=== PATIENT | male | born 1950 | race Caucasian/White ===

== ENCOUNTER 2021-02-13 13:37 | Inpatient (IN) | payer MEDICARE, SELFPAY ==
[2021-02-13 13:45] VITALS: PULSE 96; RESP 20; O2SAT 95
--- NOTE | 2021-02-13 13:47 | WPDPN ---
Progress Note: A&P Assessment and Plan (1) Weakness: Code(s): R53.1 - Weakness Status: Acute Assessment and Plan: ? Exhibit tolerance during physical activity as evidenced by a normal fluctuation of vital signs during physical activity. ? Patient will be ability to perform required activities of daily living. ? Provide appropriate nutrition for healing and strength. ? Use appropriate to prevent falls. ? Continue physical therapy/occupational therapy. (2) Fracture: Code(s): T14.8XXA - Other injury of unspecified body region, initial encounter Status: Acute Assessment and Plan: Imaging from outside hospital indicate left scapula, first and sixth rib acetabular and pubic ramus fx and L1 compression fracture Possibly mild loosening of the L3 pedicular screws Imaging indicate left pulmonary contusion Patient's orthopedic surgeons Dr. Friedman and Dr. Scott's Sling to left upper extremity with nonweightbearing Left lower extremity nonweightbearing TLSO on while up okay to remove while lying in bed is sitting in chair soft partial cast to left foot due to left calcaneal fx Follow-up with Dr. Thibodeaux 2 weeks from lumbar spine fracture [phone] Follow-up with Dr. Shin , PCP in 1 week [phone] Follow-up with Dr. Ram [phone] Continue pain control with physical therapy/Occupational Therapy (3) On supplemental oxygen by nasal cannula: Code(s): Z78.9 - Other specified health status Status: Acute Assessment and Plan: Unable to titrate oxygen off the patient is a [facility] in [place] patient currently on 2 L nasal cannula satting in the lower 90s at the outside hospital Possibly secondary to multiple rib fractures and left pulmonary contusion Will attempt to titrate if not patient will need home to evaluate upon discharge (4) Hypercholesterolemia: Code(s): E78.00 - Pure hypercholesterolemia, unspecified Status: Acute Assessment and Plan: Continue statins Time Spent With Patient Time: 60 minutes Review of Systems Review of Systems: Narrative: A 14 organ system Review of Systems was performed and pertinent positives included in the HPI, otherwise remaining ROS is negative. Exam Narrative: Exam Narrative: GENERAL: This is a well-nourished, well-developed patient, in no apparent distress. HEAD: normocephalic, atraumatic. EYES: PERRL. Sclera clear/white. Vision is grossly intact. EARS: External ears normal, auditory canals clear and without drainage, TMs normal without perforation. Hearing grossly intact. NOSE: External nose normal with no obvious nasal discharge, nares without redness, no rhinorrhea. THROAT: Mucous membranes moist, posterior pharynx clear. NECK: Neck supple, non-tender without lymphadenopathy, masses or thyromegaly. CARDIOVASCULAR: Regular rate and rhythm without murmurs, gallops, or rubs. RESPIRATORY: Clear to auscultation. Breath sounds equal bilaterally. No wheezes, rales, or rhonchi. GASTROINTESTINAL: Abdomen soft, non-tender, nondistended. Bowel sounds are active. No hepato-splenomegaly, or palpable masses. No guarding. SKIN: warm, with no suspicious lesions or rash, good texture and turgor. Approximately 2 open areas to his left upper extremity NEURO: awake, alert, and oriented to person, place and time. There were no obvious focal neurologic abnormalities. Steady gait EXTREMITIES: Limited range of motion to the left lower extremity soft partial cast in place with weightbearing restriction to upper and lower extremity. No edema. No calf tenderness. Negative Homans sign bilaterally. BACK: Nontender without deformity or crepitance. No flank tenderness. Quality VTE Prophylaxis VTE prophylaxis: pharmacologic ordered (Lovenox) Subjective Date/time seen: 02/13/21 13:47 this is a 70-year-old male that is coming [facility] for swing bed placement. Patient has a history of high cholesterol. Patient fell from a ladder and was
[2021-02-13 14:08] VITALS: BMI 24.5
[2021-02-13 14:41] VITALS: BP 150/90; PULSE 96; RESP 20; TEMP 36.8; O2SAT 95
--- NOTE | 2021-02-13 15:03 | PM.IMHP ---
H&P: HPI History of Present Illness Date/Time: 02/13/21 15:03 Chief Complaint: Multiple fractures, rehabilitation Narrative: 70-year-old gentleman admitted to this hospital as a swing bed for rehabilitation after a 7 ft fall onto the lift arms of her tractor. He has fractures of the left hip acetabulum, left inferior pubic ramus, compression fracture of L1, fracture of ribs 3 through 6 with pulmonary contusion, fracture of the left calcaneus, and a comminuted left scapular fracture. These injuries were managed non operatively and he has a TLSO that he is to wear when he is out of bed or chair. He has a small oxygen requirement (2 l/m) with activity, reading 95% on room air at rest. Review of Systems Review of Systems: All systems reviewed & are unremarkable except as noted in HPI and below Constitutional: Constitutional: Denies anorexia, Denies difficulty sleeping and Denies fever(s) Eyes: Eyes: Denies change in vision and Denies loss of vision ENT: Denies nasal congestion, Denies nasal discharge and Denies sore throat Cardiovascular: Cardiovascular: Denies acrocyanosis, Denies chest pain, Denies rapid heart rate, Reports dyspnea on exertion and Denies orthopnea Respiratory: Respiratory: Denies cough, Denies hemoptysis and Reports pain on inspiration Gastrointestinal: Gastrointestinal: Denies abdominal pain, Denies diarrhea, Denies nausea and Denies vomiting Genitourinary: Genitourinary: Denies hematuria, Denies dysuria and Denies urinary frequency Musculoskeletal: Musculoskeletal: Reports as per HPI, Denies arthralgias and Denies joint swelling Integumentary/Breasts: Skin/Breast: Denies pruritus, Denies lesions, Denies erythema and Denies rash Neurologic: Denies memory loss, Denies numbness, Denies convulsions and Denies seizure-like activity Hematologic/Lymphatic: Hematologic/Lymphatic: Denies easy bleeding and Denies easy bruising Allergic/Immunologic: Allergic/Immunologic: Denies urticaria, Denies throat swelling and Denies tongue swelling PMF Surgical History Surgical History (Updated 02/13/21 @ 15:18 by Kingsley Mon MD) Previous back surgery Family History Family History (Updated 02/13/21 @ 14:25 by Asia Vasquez RN) Father Heart attack Mother Aneurysm Social History Social History Smoking packs per day: 1 Smoking cigarettes per day: 20.0 Smoking status: Former smoker Tobacco type: cigarettes Alcohol intake: former Drinks per week: 12 Substance use: never Gender identity (if verbalized by the patient): Male Spiritual care concerns: No Meds Home Medications and Allergies Home Medications Medication Instructions Recorded Confirmed Type acetaminophen 500 mg PO Q4-6H PRN 02/13/21 02/13/21 History baclofen 10 mg PO TID 02/13/21 02/13/21 History docusate sodium [Colace] 200 mg PO BID 02/13/21 02/13/21 History enoxaparin 40 mg SUBCUT DAILY 02/13/21 02/13/21 History lidocaine [Lidocaine Pain Relief] 1 patch TOPICAL DAILY 02/13/21 02/13/21 History simvastatin [Zocor] 20 mg PO HS 02/13/21 02/13/21 History Vital Signs Vital Signs - 24 hr 02/13/21 13:45 02/13/21 14:41 Temperature 36.8 C Pulse Rate 96 96 Respiratory Rate 20 20 Blood Pressure 150/90 H Pulse Oximetry 95 95 Exam Const: General: cooperative, healthy appearing, no acute distress, alert, awake and Physically active Nutritional Appearance: average body habitus Orientation/consciousness: patient oriented x3 Limitations: no limitations HENMT: Head: normal to inspection and atraumatic Face and sinus: normal facial exam Chest: Chest palpation & inspection: normal inspection of the chest Resp: Effort & Inspection: normal respiratory effort Auscultation: clear to auscultation bilaterally, no crackles, no rales, no rhonchi, no wheezes and diminished lung sounds (left midfield) Cardio: Jugular venous distension: no JVD Rate: regular rate
[2021-02-13] MEDS: BACLOFEN 10 MG TABLET PO (18:20)
[2021-02-13] MEDS: ENOXAPARIN 40 MG/0.4 ML SYRINGE SUB-Q (18:20)
[2021-02-13] MEDS: BACITRACIN OINTMENT 15 GM TUBE 1 APPLIC TOPICAL (18:20)
[2021-02-13] MEDS: DOCUSATE SODIUM 100 MG CAPSULE 200 MG PO (18:20)
[2021-02-13] MEDS: SIMVASTATIN 10 MG TABLET 20 MG PO (20:29)
[2021-02-13] MEDS: DOCUSATE SODIUM 100 MG CAPSULE PO (20:38)
[2021-02-14 00:13] VITALS: BP 121/75; PULSE 104; RESP 18; TEMP 36.8; O2SAT 94
[2021-02-14 05:26] LABS: Hematocrit 42.9 % (37.0-46.0); Hemoglobin 14.3 g/dL (12.4-15.3); Mean Corpuscular HGB Conc 33.3 g/dL (32.0-36.0); Mean Corpuscular Hemoglobin 31.4 pg (27.0-31.0); Mean Corpuscular Volume 94.1 fL (78.0-102.0); Mean Platelet Volume 9.8 fl (8.7-11.0); Platelet Count Result 275 K/mm3 (150-420); Red Blood Count 4.56 M/mm3 (4.70-6.10); Red Cell Distribution Width 12.7 % (11.6-14.4); White Blood Count 6.8 K/mm3 (4.8-10.8)
[2021-02-14 05:44] LABS: Alanine Aminotransferase 79 U/L (16-63); Albumin Level 2.9 g/dL (3.4-5.0); Alkaline Phosphatase 69 U/L (46-116); Anion Gap 6 mmol/L (8-16); Aspartate Amino Transferase 50 U/L (15-37); Bilirubin,Total 0.6 mg/dL (0.00-1.00); Blood Urea Nitrogen 16 mg/dL (7-18); Carbon Dioxide 31 mmol/L (21-32); Chloride 99 mmol/L (98-108); Estimated CRCL calculation 81 ml/min; Estimated Glomerular Filt Rate > 60; Glucose 114 mg/dL (70-99); Magnesium 1.9 mg/dL (1.8-2.4); Osmolality Calculated 284 mOsm/kg (285-295); Potassium 4.2 mmol/L (3.5-5.1); Sodium 136 mmol/L (136-145); Total Protein 6.4 g/dL (6.4-8.2)
[2021-02-14] MEDS: ACETAMINOPHEN 325 MG TABLET 650 MG PO ×2 (07:22→13:36)
[2021-02-14 07:25] VITALS: BP 130/89; PULSE 107; RESP 20; TEMP 37.1; O2SAT 92
[2021-02-14] MEDS: LIDOCAINE 5% PATCH 1 PATCH TRANSDERM (09:10)
[2021-02-14] MEDS: DOCUSATE SODIUM 100 MG CAPSULE PO ×2 (09:11→22:14)
[2021-02-14] MEDS: DOCUSATE SODIUM 100 MG CAPSULE 200 MG PO ×2 (09:11→18:01)
[2021-02-14] MEDS: BACLOFEN 10 MG TABLET PO ×3 (09:11→18:01)
[2021-02-14 16:00] VITALS: BP 116/84; PULSE 80; RESP 18; TEMP 37; O2SAT 94
[2021-02-14] MEDS: ENOXAPARIN 40 MG/0.4 ML SYRINGE SUB-Q (18:02)
[2021-02-14] MEDS: SIMVASTATIN 10 MG TABLET 20 MG PO (22:14)
[2021-02-15] VITALS: BP 120/88; PULSE 105; RESP 18; TEMP 36.5; O2SAT 90
[2021-02-15] MEDS: ACETAMINOPHEN 325 MG TABLET 650 MG PO ×3 (01:03→21:10)
--- NOTE | 2021-02-15 02:01 | PC.NURSE ---
Patient stated left arm was going numb and uncomfortable in bed. Help Desk Specialist assisted patient to recliner chair for change of position. TSLO brace and arm sling on for movements and transfers. Patient sat in recliner chair for about 45 minutes and was assisted back into bed. No further c/o left arm numbness or discomfort. PRN tylenol was given and effective.
[2021-02-15 07:30] VITALS: BP 119/83; PULSE 102; RESP 18; TEMP 37.1; O2SAT 93
[2021-02-15] MEDS: LIDOCAINE 5% PATCH 1 PATCH TRANSDERM (08:50)
[2021-02-15] MEDS: BACLOFEN 10 MG TABLET PO ×3 (08:51→16:59)
[2021-02-15] MEDS: DOCUSATE SODIUM 100 MG CAPSULE 200 MG PO ×2 (08:51→16:59)
[2021-02-15] MEDS: DOCUSATE SODIUM 100 MG CAPSULE PO ×2 (08:51→21:10)
[2021-02-15] MEDS: polyethylene glycoL 3350 17 GM POWD.PACK PO (09:56)
[2021-02-15 15:55] VITALS: BP 127/81; PULSE 94; RESP 18; TEMP 36.7; O2SAT 95
[2021-02-15] MEDS: ENOXAPARIN 40 MG/0.4 ML SYRINGE SUB-Q (17:00)
[2021-02-15] MEDS: SIMVASTATIN 10 MG TABLET 20 MG PO (21:10)
[2021-02-16] VITALS: BP 101/67; PULSE 101; RESP 14; TEMP 36.6; O2SAT 98
[2021-02-16 07:45] VITALS: BP 117/66; PULSE 96; RESP 18; TEMP 36.5; O2SAT 93
[2021-02-16] MEDS: ACETAMINOPHEN 325 MG TABLET 650 MG PO (08:44)
[2021-02-16] MEDS: polyethylene glycoL 3350 17 GM POWD.PACK PO (08:44)
[2021-02-16] MEDS: LIDOCAINE 5% PATCH 1 PATCH TRANSDERM (08:45)
[2021-02-16] MEDS: BACLOFEN 10 MG TABLET PO ×3 (08:45→17:48)
[2021-02-16] MEDS: DOCUSATE SODIUM 100 MG CAPSULE 200 MG PO ×2 (08:45→17:48)
[2021-02-16] MEDS: DOCUSATE SODIUM 100 MG CAPSULE PO ×2 (08:45→19:59)
--- NOTE | 2021-02-16 10:38 | PC.NURSE ---
patient's SO at bedside, urinal emptied, denies any needs at this time.
--- NOTE | 2021-02-16 15:30 | PCOTNOTE ---
On 02/16/21, the student, [Mayuri Hale ], provided care and completed [facility] documentation on this patient. I have reviewed the student's documentation and agree with the findings.
[2021-02-16 16:00] VITALS: BP 122/67; PULSE 98; RESP 18; TEMP 36.7; O2SAT 97
[2021-02-16] MEDS: ENOXAPARIN 40 MG/0.4 ML SYRINGE SUB-Q (17:49)
[2021-02-16] MEDS: SIMVASTATIN 10 MG TABLET 20 MG PO (20:00)
--- NOTE | 2021-02-16 22:00 | PC.NURSE ---
Resting quietly in bed, side rails up x2 and personal items and call light in reach of patient
[2021-02-16 23:44] VITALS: BP 120/76; PULSE 97; RESP 20; TEMP 37; O2SAT 93
[2021-02-17] MEDS: ACETAMINOPHEN 325 MG TABLET 650 MG PO ×2 (02:47→20:49)
[2021-02-17 08:00] VITALS: BP 109/86; PULSE 90; RESP 16; TEMP 36.4; O2SAT 94
[2021-02-17] MEDS: DOCUSATE SODIUM 100 MG CAPSULE PO ×2 (08:51→20:48)
[2021-02-17] MEDS: DOCUSATE SODIUM 100 MG CAPSULE 200 MG PO ×2 (08:51→17:50)
[2021-02-17] MEDS: LIDOCAINE 5% PATCH 1 PATCH TRANSDERM (08:52)
[2021-02-17] MEDS: BACLOFEN 10 MG TABLET PO ×3 (08:52→17:50)
[2021-02-17] MEDS: polyethylene glycoL 3350 17 GM POWD.PACK PO (08:57)
[2021-02-17 16:00] VITALS: BP 121/72; PULSE 78; RESP 20; TEMP 36.9; O2SAT 95
[2021-02-17] MEDS: ENOXAPARIN 40 MG/0.4 ML SYRINGE SUB-Q (17:50)
[2021-02-17] MEDS: SIMVASTATIN 10 MG TABLET 20 MG PO (20:48)
[2021-02-18] VITALS: BP 107/79; PULSE 92; RESP 14; TEMP 36.4; O2SAT 93
[2021-02-18 06:00] LABS: Hematocrit 42.3 % (37.0-46.0); Hemoglobin 13.7 g/dL (12.4-15.3); Mean Corpuscular HGB Conc 32.4 g/dL (32.0-36.0); Mean Corpuscular Hemoglobin 30.8 pg (27.0-31.0); Mean Corpuscular Volume 95.1 fL (78.0-102.0); Mean Platelet Volume 9.4 fl (8.7-11.0); Platelet Count Result 438 K/mm3 (150-420); Red Blood Count 4.45 M/mm3 (4.70-6.10); Red Cell Distribution Width 12.6 % (11.6-14.4)
[2021-02-18 06:10] LABS: Anion Gap 5 mmol/L (8-16); Blood Urea Nitrogen 15 mg/dL (7-18); Calcium 8.9 mg/dL (8.5-10.1); Carbon Dioxide 33 mmol/L (21-32); Chloride 97 mmol/L (98-108); Estimated CRCL calculation 81 ml/min; Estimated Glomerular Filt Rate > 60; Glucose 107 mg/dL (70-99); Osmolality Calculated 280 mOsm/kg (285-295); Potassium 4.1 mmol/L (3.5-5.1); Sodium 135 mmol/L (136-145)
[2021-02-18 08:00] VITALS: BP 125/85; PULSE 94; RESP 20; TEMP 36.9; O2SAT 93
[2021-02-18] MEDS: DOCUSATE SODIUM 100 MG CAPSULE PO ×2 (09:28→20:56)
[2021-02-18] MEDS: BACLOFEN 10 MG TABLET PO ×3 (09:28→16:38)
[2021-02-18] MEDS: LIDOCAINE 5% PATCH 1 PATCH TRANSDERM (09:28)
[2021-02-18] MEDS: ACETAMINOPHEN 325 MG TABLET 650 MG PO ×2 (09:28→20:56)
[2021-02-18] MEDS: polyethylene glycoL 3350 17 GM POWD.PACK PO (09:28)
[2021-02-18] MEDS: DOCUSATE SODIUM 100 MG CAPSULE 200 MG PO ×2 (09:28→16:38)
--- NOTE | 2021-02-18 10:13 | PM.IMPN ---
Progress Note: A&P Assessment and Plan (1) Weakness: Code(s): R53.1 - Weakness Status: Acute Assessment and Plan: ? Exhibit tolerance during physical activity as evidenced by a normal fluctuation of vital signs during physical activity. ? Patient will be ability to perform required activities of daily living. ? Provide appropriate nutrition for healing and strength. ? Use appropriate to prevent falls. ? Continue physical therapy/occupational therapy. 02/18/2021 Pt continues to work with PT/OT and states he is doing well even though it is uncomfortable at times (2) Fracture: Code(s): T14.8XXA - Other injury of unspecified body region, initial encounter Status: Acute Assessment and Plan: Imaging from outside hospital indicate left scapula, first and sixth rib acetabular and pubic ramus fx and L1 compression fracture Possibly mild loosening of the L3 pedicular screws Imaging indicate left pulmonary contusion Patient's orthopedic surgeons Dr. Friedman and Dr. Scott's Sling to left upper extremity with nonweightbearing Left lower extremity nonweightbearing TLSO on while up okay to remove while lying in bed is sitting in chair soft partial cast to left foot due to left calcaneal fx Follow-up with Dr. Thibodeaux 2 weeks from lumbar spine fracture [phone] Follow-up with Dr. Shin , PCP in 1 week [phone] Follow-up with Dr. Ram [phone] Continue pain control with physical therapy/Occupational Therapy 02/18/2021 Pain management is adequate at this time (3) On supplemental oxygen by nasal cannula: Code(s): Z78.9 - Other specified health status Status: Acute Assessment and Plan: Unable to titrate oxygen off the patient is a [facility] in [place] patient currently on 2 L nasal cannula satting in the lower 90s at the outside hospital Possibly secondary to multiple rib fractures and left pulmonary contusion Will attempt to titrate if not patient will need home to evaluate upon discharge 02/18/2021 Currently no supplemental O2, no SOB or increased WOB, talks in complete sentences (4) Hypercholesterolemia: Code(s): E78.00 - Pure hypercholesterolemia, unspecified Status: Acute Assessment and Plan: Continue statins Subjective Date/time seen: 02/18/21 10:13 Pt states he is doing well. He admits to some aches and pains but says the medications he is taking are working. Denies CP, SOB. Admits to having a good appetite, feeling better each day. Review of Systems Constitutional: Constitutional: Reports no additional constitutional complaints, Reports body ache(s) (but controled with current pain medications), Denies chills and Denies fever(s) Cardiovascular: Cardiovascular: Reports no additional cardiovascular complaints, Denies chest pain and Denies chest pain at rest Respiratory: Respiratory: Reports no additional respiratory complaints, Denies dyspnea and Denies dyspnea on exertion Gastrointestinal: Gastrointestinal: Reports no additional gastrointestinal complaints Musculoskeletal: Comments: Aches and pains r/t injuries but tolerated with current pain medications Pt is able to feel toes in the casted leg Neurologic: Reports system reviewed and no additional complaints, except as documented Exam Const: General: cooperative, comfortable, no acute distress, alert, awake and Physically active Nutritional Appearance: average body habitus Resp: Effort & Inspection: normal respiratory effort Auscultation: clear to auscultation bilaterally Cardio: Jugular venous distension: no JVD Rate: regular rate Heart sounds: S1 normal heart sound present and S2 normal heart sound present Neuro: General: oriented to person, oriented to place and oriented to time Cranial nerves: Yes CN's II-XII intact bilaterally (grossly intact) Cognition (Neuro): normal cognition Speech: normal speech Extrem: General: no pedal edema Left lower extremity: normal capilla
[2021-02-18 16:00] VITALS: BP 124/84; PULSE 88; RESP 18; TEMP 36.9; O2SAT 94
[2021-02-18] MEDS: ENOXAPARIN 40 MG/0.4 ML SYRINGE SUB-Q (16:39)
[2021-02-18] MEDS: SIMVASTATIN 10 MG TABLET 20 MG PO (20:55)
[2021-02-19] VITALS: BP 126/87; PULSE 99; RESP 18; TEMP 36.7; O2SAT 91
[2021-02-19] MEDS: traMADol HCL (*CRX) 25 MG TABLET PO (04:52)
[2021-02-19 07:25] VITALS: BP 116/83; PULSE 89; RESP 18; TEMP 36.7; O2SAT 95
[2021-02-19] MEDS: LIDOCAINE 5% PATCH 1 PATCH TRANSDERM (08:20)
[2021-02-19] MEDS: BACLOFEN 10 MG TABLET PO ×2 (08:20→12:52)
[2021-02-19] MEDS: DOCUSATE SODIUM 100 MG CAPSULE PO (08:22)
[2021-02-19] MEDS: IBUPROFEN 600 MG TABLET PO (12:53)
--- NOTE | 2021-02-19 13:11 | PCOTNOTE ---
On 02/19/21, the student, [Mayuri Hale ], provided care and completed [facility] documentation on this patient. I have reviewed the student's documentation and agree with the findings.
--- NOTE | 2021-02-19 13:23 | PM.DS ---
DS: Admitting Diagnosis Admitting Diagnosis Admitting Diagnosis: Rehabilitation s/p Fall from 8 feet with Multiple Fractures DS: Discharge Diagnosis Discharge Diagnosis (1) Weakness: Code(s): R53.1 - Weakness Status: Acute Assessment and Plan: ? Exhibit tolerance during physical activity as evidenced by a normal fluctuation of vital signs during physical activity. ? Patient will be ability to perform required activities of daily living. ? Provide appropriate nutrition for healing and strength. ? Use appropriate to prevent falls. ? Continue physical therapy/occupational therapy. 02/18/2021 Pt continues to work with PT/OT and states he is doing well even though it is uncomfortable at times 02/19/2021 Pt had care conference today and elected to return home today. PT states he will be safe to go home, he is otherwise medically stable to be discharged (2) Fracture: Code(s): T14.8XXA - Other injury of unspecified body region, initial encounter Status: Acute Assessment and Plan: Imaging from outside hospital indicate left scapula, first and sixth rib acetabular and pubic ramus fx and L1 compression fracture Possibly mild loosening of the L3 pedicular screws Imaging indicate left pulmonary contusion Patient's orthopedic surgeons Dr. Friedman and Dr. Scott's Sling to left upper extremity with nonweightbearing Left lower extremity nonweightbearing TLSO on while up okay to remove while lying in bed is sitting in chair soft partial cast to left foot due to left calcaneal fx Follow-up with Dr. Thibodeaux 2 weeks from lumbar spine fracture [phone] Follow-up with Dr. Shin , PCP in 1 week [phone] Follow-up with Dr. Ram [phone] Continue pain control with physical therapy/Occupational Therapy 02/18/2021 Pain management is adequate at this time 02/19/2021 Pt to follow up as noted above. (3) On supplemental oxygen by nasal cannula: Code(s): Z78.9 - Other specified health status Status: Acute Assessment and Plan: Unable to titrate oxygen off the patient is a [facility] in [place] patient currently on 2 L nasal cannula satting in the lower 90s at the outside hospital Possibly secondary to multiple rib fractures and left pulmonary contusion Will attempt to titrate if not patient will need home to evaluate upon discharge 02/18/2021 Currently no supplemental O2, no SOB or increased WOB, talks in complete sentences 02/19/2021 Pt remains on room air without any difficulties with breathing (4) Hypercholesterolemia: Code(s): E78.00 - Pure hypercholesterolemia, unspecified Status: Acute Assessment and Plan: Continue statins DS: Summary Hospital Course Hospital Course: Pt has done quite well with PT/OT, he is assessed as safe to return home and to continue with exercises learned from PT and OT. Time Spent with Patient Time attestation: Total time spent providing and/or coordinating discharge services: < 30 minutes Exam Const: General: cooperative, healthy appearing, comfortable, no acute distress, alert, awake and Physically active Nutritional Appearance: average body habitus Orientation/consciousness: oriented to person, oriented to place and oriented to time Limitations: physical limitations (Non-weight bearing left arm and left leg) Resp: Effort & Inspection: normal respiratory effort Auscultation: clear to auscultation bilaterally Cardio: Jugular venous distension: no JVD Rate: regular rate Heart sounds: S1 normal heart sound present and S2 normal heart sound present Neuro: General: oriented to person, oriented to place and oriented to time Cranial nerves: Yes CN's II-XII intact bilaterally (grossly intact) Cognition (Neuro): normal cognition Speech: normal speech Extrem: General: no pedal edema Left lower extremity: normal capillary refill and foot (normal sensation of this casted leg) Discharge Plan Discharge Attending physician on discha
[2021-02-19 16:00] VITALS: BP 118/78; PULSE 92; RESP 18; TEMP 36.9; O2SAT 95
--- NOTE | 2021-02-19 16:40 | PC.NURSE ---
Discharge instructions reviewed with patient and significant other. Patients belongings packed and carried out by S.O. Patient assisted to wheelchair and escorted off floor to main entrance. Assisted into car.
--- NOTE | 2021-02-20 11:00 | PC.NURSE ---
Pt states he received and understood his discharge instructions. Pt also states the care was real good .
== END 2021-02-19 16:40 | disposition home or self-care (01) | DRG 560 ==
PROVIDERS: Nurse Practitioner; Nurse Practitioner Family; Admitting Provider Emergency Medicine; PCP Family Medicine; Visit Provider Emergency Medicine
DX: S32.402D Unspecified fracture of left acetabulum, subsequent encounter for fracture with routine healing (principal); S92.002K Unspecified fracture of left calcaneus, subsequent encounter for fracture with nonunion; S42.102 Fracture of unspecified part of scapula, left shoulder; S32.592D Other specified fracture of left pubis, subsequent encounter for fracture with routine healing; S32.019D Unspecified fracture of first lumbar vertebra, subsequent encounter for fracture with routine healing; S22.49XD Multiple fractures of ribs, unspecified side, subsequent encounter for fracture with routine healing; S27.321D Contusion of lung, unilateral, subsequent encounter; W17.89XD Other fall from one level to another, subsequent encounter; Z87.891 Personal history of nicotine dependence; E78.00 Pure hypercholesterolemia, unspecified
CPT/HCPCS: 36415; 80048; 80053; 83735; 85027; 97110; 97161; 97165; 97530; 97535; A9270; J1650